=== PATIENT | female | born 1970 | race Caucasian/White ===

== ENCOUNTER 2016-10-23 12:14 | Emergency (ER) | payer MEDICARE, OTHER ==
--- NOTE | 2016-10-23 12:32 | ED Physician Documentation ---
General Adult - HISTORIAN Historian: patient - HPI Stated Complaint: L shoulder pain Chief Complaint: General Adult Onset: days ago (1) Timing: still present Severity: moderate Further Comments: yes (Pt is a 46 yo female with L shoulder pain x 10 days. Pt says she slept on her arm wrong, but pain has persisted. Pt saw chiropractor about this, with temporary relief. Pt was concerned that her shoulder was dislocated.) - ROS CONST: no problems EYES/ENT: none CVS/RESP: none GI/: none MS/SKIN/LYMPH: other (L shoulder pain) - PAST HX Past History: other (Anxiety/Depression, HLD, HTN, ) Surgeries/Procedures: hysterectomy Allergies/Adverse Reactions: Allergies Allergy/AdvReac Type Severity Reaction Status Date / Time cephalexin monohydrate Allergy Verified 10/23/16 12:36 [From [facility]] Home Medications: Ambulatory Orders Medication Instructions Recorded Desvenlafaxine Succinate [Pristiq 50 mg PO DAILY 10/23/16 ER] Lamotrigine [Lamotrigine] 100 mg PO DAILY 10/23/16 Pravastatin Sodium [Pravachol] 20 mg PO HS 10/23/16 Prazosin HCl [Prazosin HCl] 1 mg PO DAILY 10/23/16 Trazodone HCl [Desyrel] 100 mg PO DAILY 10/23/16 - SOCIAL HX Smoking History: cigarettes - FAMILY HX Family History: No - REVIEWED ASSESSMENTS Nursing Assessment Reviewed: Yes Vitals Reviewed: Yes Progress - Progress Progress: X-ray L shoulder: The left shoulder is unremarkable without fracture, dislocation, arthropathy, or focal bone lesion. Toradol 60 mg IM in ER Sling Wear sling. Ibuprofen 200 mg. Take 2 or 3 tablets every 8 hrs with food. Follow up with primary provider if symptoms persist for more than 1 or 2 weeks. General Adult Physical Exam - PHYSICAL EXAM GENERAL APPEARANCE: moderate distress NECK: normal inspection, supple RESPIRATORY: no resp distress, chest non-tender, breath sounds normal CVS: reg rate & rhythm, heart sounds normal BACK: normal inspection, no CVA tenderness SKIN: warm/dry, normal color EXTREMITIES: other (L shoulder pain. Inhibited about performing rotator cuff manuevers; possible weakness L v R doing these maneuvers.) NEURO: oriented X3, motor nml (possible weakess L v R on rotator cuff maneuvers. ), sensation nml Discharge Clincal Impression: Rotator cuff injury Qualifiers: Encounter type: initial encounter Laterality: left Qualified Code(s): S46.002A - Unspecified injury of muscle(s) and tendon(s) of the rotator cuff of left shoulder, initial encounter Referrals: Rhys Silva DO [Primary Care Provider] - Home Medications: Ambulatory Orders Desvenlafaxine Succinate [Pristiq ER] 50 mg PO DAILY 10/23/16 Lamotrigine [Lamotrigine] 100 mg PO DAILY 10/23/16 Pravastatin Sodium [Pravachol] 20 mg PO HS 10/23/16 Prazosin HCl [Prazosin HCl] 1 mg PO DAILY 10/23/16 Trazodone HCl [Desyrel] 100 mg PO DAILY 10/23/16 Condition: Good Disposition: 01 HOME, SELF-CARE Decision to Admit: NO Decision Time: 13:08
[2016-10-23] MEDS: KETOROLAC TROMETHAMINE 60 MG/2 ML VIAL IM ONE (13:06)
[2016-10-23 13:19] VITALS: BP 118/58
--- NOTE | 2016-10-23 13:34 | Diagnostic Imaging Report ---
VASILIY BOOKER~ [facility] [address] [facility].[address] [address] ~ ~ ~ ~ Report Submission Date: Oct 23, 2016 1:01:02 PM CDT Patient ~ Study Name: ABRAN LOVE ~ Date: Oct 23, 2016 12:46:31 PM CDT ~ Modality Type: CR Gender: F ~ Description: SHOULDER : 74 ~ Institution: [facility] Physician: VASLIIY BOOKER ~ ~ ~ ~ Left shoulder 3 views History: Pain and decreased range of motion Findings: The left shoulder is unremarkable without fracture, dislocation, arthropathy, or focal bone lesion. ~ Electronically signed on Oct 23, 2016 1:01:02 PM CDT by: Wilber FARIA
== END 2016-10-23 13:18 | disposition home or self-care (01) ==
LOC: ED 12:14
DX: S46.002A Unspecified injury of muscle(s) and tendon(s) of the rotator cuff of left shoulder, initial encounter (principal); X58.XXXA Exposure to other specified factors, initial encounter; Y93.9 Activity, unspecified; Y99.9 Unspecified external cause status
CPT/HCPCS: 73030; J1885; 96372; 99283

== ENCOUNTER 2016-12-07 11:03 | Emergency (ER) | payer MEDICARE, OTHER ==
[2016-12-07] MEDS ORDERED: BUPIVACAINE HCL/PF 2.5 MG/ML 10ML VIAL IV ONE (11:29)
[2016-12-07] MEDS ORDERED: BUPIVACAINE HCL/PF 5 MG/ML 10ML VIAL IV ONE (11:31)
[2016-12-07] MEDS ORDERED: BUPIVACAINE HCL/PF 5 MG/ML 10ML VIAL IJ ONE (11:33)
--- NOTE | 2016-12-07 13:57 | ED Physician Documentation ---
Sore Throat/Dental Pain - HISTORIAN Historian: patient - HPI Stated Complaint: tooth pain Chief Complaint: Dental Pain Additional Information: Pain in molar for 2 days. Has dentist appointment on 12/12. Took 2000 mg tylenol this am. - ROS CONST: no problems - PAST HX Past History: none Allergies/Adverse Reactions: Allergies Allergy/AdvReac Type Severity Reaction Status Date / Time cephalexin monohydrate Allergy Verified 10/23/16 12:36 [From [facility]] Home Medications: Ambulatory Orders Medication Instructions Recorded Desvenlafaxine Succinate [Pristiq 50 mg PO DAILY 10/23/16 ER] Lamotrigine [Lamotrigine] 100 mg PO DAILY 10/23/16 Pravastatin Sodium [Pravachol] 20 mg PO HS 10/23/16 Prazosin HCl [Prazosin HCl] 1 mg PO DAILY 10/23/16 Trazodone HCl [Desyrel] 100 mg PO DAILY 10/23/16 Amoxicillin [Trimox] 500 mg PO TID #30 capsule 12/07/16 Aspirin [Gale] 81 mg PO 1T 12/07/16 - SOCIAL HX Smoking History: cigarettes (2 PPD x 26 years) - FAMILY HX Family History: No - VITAL SIGNS Vital Signs: Vital Signs Temp Pulse Resp BP Pulse Ox 118/58 10/23/16 13:18 - REVIEWED ASSESSMENTS Nursing Assessment Reviewed: Yes Vitals Reviewed: Yes Progress - Progress Progress: L dental injection with 2.5 ml 0.5% bupivacaine, with good relief of pain Dental Pain Physical Exam - EXAM General Appearance: moderate distress Head/Neck: trachea midline, no lymphadenopathy, other (left maxillary swelling) Eyes: eyes nml inspection Mouth/Throat: lips nml, voice nml, no air way problems, gum swelling around teeth (#2). No: drooling, trismus Ear/Nose: nml inspection Respiratory: breath sounds nml CVS: reg. rate & rhythm, heart sounds nml Extremities: nml ROM (gait ) Skin: warm/dry, normal color Neuro/Psych: No: weakness Discharge Clincal Impression: Dental abscess Prescriptions: Amoxicillin [Trimox] 500 mg PO TID #30 capsule Referrals: Rhys Silva DO [Primary Care Provider] - 2 Days Home Medications: Ambulatory Orders Desvenlafaxine Succinate [Pristiq ER] 50 mg PO DAILY 10/23/16 Lamotrigine [Lamotrigine] 100 mg PO DAILY 10/23/16 Pravastatin Sodium [Pravachol] 20 mg PO HS 10/23/16 Prazosin HCl [Prazosin HCl] 1 mg PO DAILY 10/23/16 Trazodone HCl [Desyrel] 100 mg PO DAILY 10/23/16 Amoxicillin [Trimox] 500 mg PO TID #30 capsule 12/07/16 Aspirin [Gale] 81 mg PO 1T 12/07/16 Condition: Good Disposition: 01 HOME, SELF-CARE Decision to Admit: NO Decision Time: 12:15
[2016-12-07 13:58] VITALS: BP 138/72
== END 2016-12-07 12:02 | disposition home or self-care (01) ==
LOC: ED 11:03
DX: K02.9 Dental caries, unspecified (principal)
CPT/HCPCS: 64402; 99284; J3490